=== PATIENT | female | born 1965 | race Caucasian/White ===

== ENCOUNTER 2016-09-13 03:50 | Inpatient (IN) | payer MEDICARE, MEDICAID ==
[~2016-09-13] VITALS: Ht 165.1 cm; Wt 46.3 kg
[2016-09-13] MEDS ORDERED: ACETAMINOPHEN 325 MG TABLET PO PRN (05:30)
[2016-09-13] MEDS ORDERED: MAGNESIUM HYDROXIDE 30 ML UDC PO PRN (05:30)
[2016-09-13 07:08] VITALS: BP 103/66
[2016-09-13 08:00] VITALS: BP 100/60
[2016-09-13] MEDS ORDERED: LORAZEPAM 0.5 MG TABLET PO PRN (11:00)
[2016-09-13] MEDS ORDERED: TEMAZEPAM 7.5 MG CAPSULE PO PRN (11:00)
[2016-09-13] MEDS: OLANZAPINE 5 MG/TAB.RAPDIS PO SCH ×2 (11:30→21:00)
[2016-09-13 16:00] VITALS: BP 122/69
[2016-09-14] MEDS: OLANZAPINE 5 MG/TAB.RAPDIS PO SCH ×2 (09:00→21:00)
[2016-09-14 16:10] VITALS: BP 100/58
[2016-09-14] MEDS ORDERED: OLANZAPINE 10 MG VIAL IM STA (17:50)
[2016-09-15] MEDS: OLANZAPINE 5 MG/TAB.RAPDIS PO SCH ×2 (09:00→20:43)
[2016-09-15] MEDS ORDERED: OLANZAPINE 10 MG VIAL IM STA (09:09)
[2016-09-15 20:00] VITALS: BP 112/72
[2016-09-16 08:00] VITALS: BP 118/72
[2016-09-16] MEDS: OLANZAPINE 5 MG/TAB.RAPDIS PO SCH ×2 (09:00→20:24)
[2016-09-16 20:00] VITALS: BP 127/79
[2016-09-17] MEDS: OLANZAPINE 5 MG/TAB.RAPDIS PO SCH ×2 (09:00→22:00)
[2016-09-17 20:00] VITALS: BP 137/66
[2016-09-17] MEDS: HALOPERIDOL 5 MG TABLET PO SCH (22:00)
[2016-09-18] MEDS: OLANZAPINE 5 MG/TAB.RAPDIS PO SCH ×2 (08:11→21:54)
[2016-09-18] MEDS: HALOPERIDOL 5 MG TABLET PO SCH (21:54)
[2016-09-18] MEDS ORDERED: LORAZEPAM INJ 2 MG/ML VIAL ONE (23:16)
[2016-09-18] MEDS ORDERED: BENZTROPINE MESYLATE (2MG/2ML) 2 MG/2 ML AMPUL ONE (23:17)
[2016-09-18] MEDS ORDERED: HALOPERIDOL LACTATE INJ 5 MG/ML VIAL ONE (23:17)
[2016-09-18] MEDS ORDERED: BENZTROPINE MESYLATE (2MG/2ML) 2 MG/2 ML AMPUL IM ONE (23:30)
[2016-09-18] MEDS ORDERED: HALOPERIDOL LACTATE INJ 5 MG/ML VIAL IM ONE (23:30)
[2016-09-18] MEDS ORDERED: LORAZEPAM INJ 2 MG/ML VIAL IM ONE (23:30)
[2016-09-19] MEDS: OLANZAPINE 5 MG/TAB.RAPDIS PO SCH (08:18)
[2016-09-19] MEDS ORDERED: HALOPERIDOL 5 MG TABLET PO SCH ×2 (10:30→17:00)
[2016-09-19] MEDS: BENZTROPINE MESYLATE (1 MG) 1 MG TABLET PO SCH ×2 (10:30→16:54)
[2016-09-19] MEDS: HALOPERIDOL 5 MG TABLET PO SCH ×2 (10:38→16:54)
[2016-09-19] MEDS: BENZTROPINE MESYLATE (2MG/2ML) 2 MG/2 ML AMPUL IM PRN ×2 (11:14→16:57)
[2016-09-19] MEDS: HALOPERIDOL LACTATE INJ 5 MG/ML VIAL IM PRN ×2 (11:14→16:57)
[2016-09-19 11:30] VITALS: BP 120/67
[2016-09-19 18:19] LABS: BASOPHILS % (AUTO) 0.5 % (0.0-2.0); EOSINOPHILS # (AUTO) 0.2 /CMM (0.0-0.7); EOSINOPHILS % (AUTO) 3.2 % (0.0-6.0); HEMATOCRIT 42 % (33-45); HEMOGLOBIN 14.2 g/dL (11.5-14.8); LYMPHOCYTES # (AUTO) 1.4 /CMM (0.8-4.8); LYMPHOCYTES % (AUTO) 25.1 % (20.0-44.0); MEAN CORPUSCULAR HEMOGLOBIN 31 PG (26.0-33.0); MEAN CORPUSCULAR HGB CONC 34 g/dl (31.0-36.0); MEAN CORPUSCULAR VOLUME 91 fL (82-100); MONOCYTES # (AUTO) 0.4 /CMM (0.1-1.30); MONOCYTES % (AUTO) 6.3 % (2.0-12.0); NEUTROPHILS # (AUTO) 3.7 /CMM (1.8-8.9); NEUTROPHILS % (AUTO) 64.9 % (43.0-81.0); PLATELET COUNT (AUTO) 191 /CMM (150-450); RDW COEFFICIENT OF VARIATION 12.9 (11.5-15.0); RED BLOOD CELL COUNT(AUTO) 4.65 MIL/uL (4.0-5.2); WHITE BLOOD COUNT (AUTO) 5.7 K/uL (4.3-11.0)
[2016-09-19 18:36] LABS: CALCIUM, SERUM 8.9 mg/dL (8.5-10.1); CREATININE 0.9 mg/dL (0.6-1.3); MAGNESIUM 1.9 mg/dL (1.8-2.4); PHOSPHORUS 4.2 mg/dL (2.5-4.9); POTASSIUM 4.6 mmol/L (3.5-5.1)
[2016-09-19 20:10] VITALS: BP 136/78
[2016-09-20] MEDS: HALOPERIDOL 5 MG TABLET PO SCH ×2 (09:00→17:00)
[2016-09-20] MEDS: BENZTROPINE MESYLATE (1 MG) 1 MG TABLET PO SCH ×2 (09:00→17:00)
[2016-09-20] MEDS: BENZTROPINE MESYLATE (2MG/2ML) 2 MG/2 ML AMPUL IM PRN ×2 (09:09→17:03)
[2016-09-20] MEDS: HALOPERIDOL LACTATE INJ 5 MG/ML VIAL IM PRN ×2 (09:09→17:02)
[2016-09-20 16:00] VITALS: BP 140/94
[2016-09-21] MEDS: HALOPERIDOL 5 MG TABLET PO SCH ×2 (08:09→15:44)
[2016-09-21] MEDS: BENZTROPINE MESYLATE (1 MG) 1 MG TABLET PO SCH ×2 (08:09→15:44)
[2016-09-22] MEDS: HALOPERIDOL 5 MG TABLET PO SCH ×2 (08:57→17:21)
[2016-09-22] MEDS: BENZTROPINE MESYLATE (1 MG) 1 MG TABLET PO SCH ×2 (08:57→17:21)
[2016-09-22] MEDS: DIVALPROEX SODIUM 125 MG CAP.SPRINK PO SCH ×2 (11:10→21:00)
[2016-09-22 15:37] VITALS: BP 128/84
[2016-09-22 20:00] VITALS: BP 117/67
[2016-09-23] MEDS: BENZTROPINE MESYLATE (1 MG) 1 MG TABLET PO SCH ×2 (09:08→16:30)
[2016-09-23] MEDS: HALOPERIDOL 5 MG TABLET PO SCH ×2 (09:09→16:30)
[2016-09-23] MEDS: DIVALPROEX SODIUM 125 MG CAP.SPRINK PO SCH ×2 (09:09→21:00)
[2016-09-23] MEDS ORDERED: BOOST PLUS FOOD-VANILLA 237 ML BOX PO SCH (17:00)
[2016-09-23 20:00] VITALS: BP 122/75
[2016-09-24] MEDS: DIVALPROEX SODIUM 125 MG CAP.SPRINK PO SCH ×2 (09:42→20:48)
[2016-09-24] MEDS: HALOPERIDOL 5 MG TABLET PO SCH ×2 (09:43→16:30)
[2016-09-24] MEDS: BENZTROPINE MESYLATE (1 MG) 1 MG TABLET PO SCH ×2 (09:43→16:30)
[2016-09-24] MEDS: BOOST PLUS FOOD-VANILLA 237 ML BOX PO SCH ×2 (09:43→16:53)
[2016-09-24 15:53] VITALS: BP 121/76
[2016-09-24 20:00] VITALS: BP 115/75
[2016-09-24 22:00] VITALS: BP 115/75
[2016-09-25] MEDS: MAG HYDROX/AL HYDROX/SIMETH 30 ML UDC PO PRN ×2 (05:13→19:12)
[2016-09-25 08:02] VITALS: BP 112/69
[2016-09-25] MEDS: DIVALPROEX SODIUM 125 MG CAP.SPRINK PO SCH ×3 (08:18→21:00)
[2016-09-25] MEDS: BENZTROPINE MESYLATE (1 MG) 1 MG TABLET PO SCH ×3 (08:18→17:06)
[2016-09-25] MEDS: BOOST PLUS FOOD-VANILLA 237 ML BOX PO SCH ×2 (08:18→17:04)
[2016-09-25] MEDS: HALOPERIDOL 5 MG TABLET PO SCH ×3 (08:19→17:06)
[2016-09-25] MEDS: HALOPERIDOL LACTATE INJ 5 MG/ML VIAL IM PRN (08:30)
[2016-09-25] MEDS: BENZTROPINE MESYLATE (2MG/2ML) 2 MG/2 ML AMPUL IM PRN (08:30)
[2016-09-26] MEDS: BOOST PLUS FOOD-VANILLA 237 ML BOX PO SCH ×2 (08:00→17:00)
[2016-09-26] MEDS: BENZTROPINE MESYLATE (1 MG) 1 MG TABLET PO SCH ×2 (08:31→17:49)
[2016-09-26] MEDS: HALOPERIDOL 5 MG TABLET PO SCH ×2 (08:31→17:49)
[2016-09-26] MEDS: DIVALPROEX SODIUM 125 MG CAP.SPRINK PO SCH ×2 (08:31→21:00)
[2016-09-26] MEDS ORDERED: OLANZAPINE 10 MG VIAL IM PRN (13:00)
[2016-09-26] MEDS: OLANZAPINE 5 MG/TAB.RAPDIS PO SCH ×2 (13:10→17:49)
[2016-09-26 20:00] VITALS: BP 107/43
[2016-09-27 08:00] VITALS: BP 100/61
[2016-09-27] MEDS: BOOST PLUS FOOD-VANILLA 237 ML BOX PO SCH ×2 (08:00→17:00)
[2016-09-27] MEDS: HALOPERIDOL 5 MG TABLET PO SCH ×2 (08:41→17:25)
[2016-09-27] MEDS: BENZTROPINE MESYLATE (1 MG) 1 MG TABLET PO SCH ×2 (08:42→17:25)
[2016-09-27] MEDS: DIVALPROEX SODIUM 125 MG CAP.SPRINK PO SCH ×3 (08:42→17:25)
[2016-09-27] MEDS: OLANZAPINE 5 MG/TAB.RAPDIS PO SCH ×3 (08:42→17:25)
[2016-09-27] MEDS ORDERED: BENZTROPINE MESYLATE (2MG/2ML) 2 MG/2 ML AMPUL IM STA (13:11)
[2016-09-27] MEDS ORDERED: LORAZEPAM INJ 2 MG/ML VIAL IM STA (13:11)
[2016-09-27] MEDS ORDERED: HALOPERIDOL LACTATE INJ 5 MG/ML VIAL IM STA (13:11)
[2016-09-27 16:00] VITALS: BP 100/61
[2016-09-27 20:48] VITALS: BP 93/55
[2016-09-28] MEDS: BOOST PLUS FOOD-VANILLA 237 ML BOX PO SCH ×3 (08:00→17:44)
[2016-09-28 08:23] VITALS: BP 117/90
[2016-09-28] MEDS: BENZTROPINE MESYLATE (1 MG) 1 MG TABLET PO SCH ×2 (08:48→15:59)
[2016-09-28] MEDS: OLANZAPINE 5 MG/TAB.RAPDIS PO SCH ×3 (08:48→15:59)
[2016-09-28] MEDS: DIVALPROEX SODIUM 125 MG CAP.SPRINK PO SCH ×3 (08:48→15:59)
[2016-09-28] MEDS: HALOPERIDOL 5 MG TABLET PO SCH ×2 (08:48→15:59)
[2016-09-28] MEDS: HALOPERIDOL LACTATE INJ 5 MG/ML VIAL IM PRN (08:51)
[2016-09-28] MEDS ORDERED: HALOPERIDOL DECANOATE IM 100 MG/ML AMPUL IM ONE (13:00)
[2016-09-28 15:28] VITALS: BP 100/59
[2016-09-28] MEDS ORDERED: HALOPERIDOL LACTATE 10 MG/5 ML UDC PO SCH (17:00)
[2016-09-28 19:49] VITALS: BP 104/50
[2016-09-29 08:00] VITALS: BP 150/76
[2016-09-29] MEDS: BOOST PLUS FOOD-VANILLA 237 ML BOX PO SCH ×2 (08:00→17:20)
[2016-09-29] MEDS ORDERED: HALOPERIDOL LACTATE INJ 5 MG/ML VIAL IM PRN (09:00)
[2016-09-29] MEDS ORDERED: OLANZAPINE 10 MG VIAL IM PRN (09:00)
[2016-09-29] MEDS: BENZTROPINE MESYLATE (1 MG) 1 MG TABLET PO SCH ×2 (09:20→17:20)
[2016-09-29] MEDS: OLANZAPINE 5 MG/TAB.RAPDIS PO SCH ×2 (09:20→17:20)
[2016-09-29] MEDS: HALOPERIDOL 5 MG TABLET PO SCH ×2 (09:20→20:45)
[2016-09-29] MEDS: DIVALPROEX SODIUM 125 MG CAP.SPRINK PO SCH ×3 (09:21→17:20)
[2016-09-29 20:00] VITALS: BP 100/57
[2016-09-29] MEDS ORDERED: HALOPERIDOL LACTATE INJ 5 MG/ML VIAL IM ONE (20:00)
[2016-09-29] MEDS ORDERED: BENZTROPINE MESYLATE (2MG/2ML) 2 MG/2 ML AMPUL IM SCH (20:00)
[2016-09-29] MEDS ORDERED: LORAZEPAM INJ 2 MG/ML VIAL IM/IV ONE (20:00)
[2016-09-29] MEDS ORDERED: BENZTROPINE MESYLATE (2MG/2ML) 2 MG/2 ML AMPUL IM ONE (20:30)
[2016-09-30] MEDS ORDERED: BENZTROPINE MESYLATE (2MG/2ML) 2 MG/2 ML AMPUL IM SCH (09:00)
[2016-09-30] MEDS: BOOST PLUS FOOD-VANILLA 237 ML BOX PO SCH ×2 (09:24→16:27)
[2016-09-30] MEDS: DIVALPROEX SODIUM 125 MG CAP.SPRINK PO SCH ×3 (09:25→16:27)
[2016-09-30] MEDS: OLANZAPINE 5 MG/TAB.RAPDIS PO SCH ×2 (09:25→16:27)
[2016-09-30] MEDS: HALOPERIDOL 5 MG TABLET PO SCH ×2 (09:25→20:24)
[2016-09-30] MEDS: BENZTROPINE MESYLATE (1 MG) 1 MG TABLET PO SCH ×2 (09:26→16:27)
[2016-09-30 20:00] VITALS: BP 103/66
[2016-10-01] MEDS: HALOPERIDOL 5 MG TABLET PO SCH ×2 (08:31→20:55)
[2016-10-01] MEDS: BENZTROPINE MESYLATE (1 MG) 1 MG TABLET PO SCH ×2 (08:31→17:16)
[2016-10-01] MEDS: OLANZAPINE 5 MG/TAB.RAPDIS PO SCH ×2 (08:31→17:16)
[2016-10-01] MEDS: DIVALPROEX SODIUM 125 MG CAP.SPRINK PO SCH ×3 (08:31→17:16)
[2016-10-01] MEDS: BOOST PLUS FOOD-VANILLA 237 ML BOX PO SCH ×2 (09:19→17:16)
[2016-10-01 20:00] VITALS: BP 133/50
[2016-10-02] MEDS: BOOST PLUS FOOD-VANILLA 237 ML BOX PO SCH ×2 (08:25→17:14)
[2016-10-02] MEDS: HALOPERIDOL 5 MG TABLET PO SCH ×2 (09:41→21:31)
[2016-10-02] MEDS: BENZTROPINE MESYLATE (1 MG) 1 MG TABLET PO SCH ×2 (09:41→17:15)
[2016-10-02] MEDS: DIVALPROEX SODIUM 125 MG CAP.SPRINK PO SCH ×3 (09:42→17:14)
[2016-10-02] MEDS: OLANZAPINE 5 MG/TAB.RAPDIS PO SCH ×2 (09:42→17:15)
[2016-10-02 10:35] VITALS: BP 110/60
[2016-10-02 10:41] VITALS: BP 110/60
[2016-10-02] MEDS ORDERED: diphenhydrAMINE HCL 50 MG/ML VIAL IV ONE (11:00)
[2016-10-02] MEDS ORDERED: LORAZEPAM INJ 2 MG/ML VIAL IV ONE (11:00)
[2016-10-02] MEDS ORDERED: HALOPERIDOL LACTATE INJ 5 MG/ML VIAL IM ONE (11:00)
[2016-10-02] MEDS ORDERED: HALOPERIDOL DECANOATE IM 100 MG/ML AMPUL IM ONE (14:10)
[2016-10-02 20:00] VITALS: BP 131/71
[2016-10-02 20:43] VITALS: BP 131/71
[2016-10-02 21:10] VITALS: BP 131/71
[2016-10-03] MEDS: HALOPERIDOL 5 MG TABLET PO SCH ×2 (08:50→20:58)
[2016-10-03] MEDS: DIVALPROEX SODIUM 125 MG CAP.SPRINK PO SCH ×3 (08:50→16:54)
[2016-10-03] MEDS: OLANZAPINE 5 MG/TAB.RAPDIS PO SCH ×2 (08:50→16:54)
[2016-10-03] MEDS: BENZTROPINE MESYLATE (1 MG) 1 MG TABLET PO SCH ×2 (08:51→16:54)
[2016-10-03] MEDS: BOOST PLUS FOOD-VANILLA 237 ML BOX PO SCH ×2 (09:58→16:56)
[2016-10-03 16:00] VITALS: BP 101/60
[2016-10-03 22:11] VITALS: BP 111/73
[2016-10-04] MEDS: DIVALPROEX SODIUM 125 MG CAP.SPRINK PO SCH ×3 (08:35→16:42)
[2016-10-04] MEDS: HALOPERIDOL 5 MG TABLET PO SCH ×2 (08:35→21:36)
[2016-10-04] MEDS: BENZTROPINE MESYLATE (1 MG) 1 MG TABLET PO SCH ×2 (08:35→16:41)
[2016-10-04] MEDS: BOOST PLUS FOOD-VANILLA 237 ML BOX PO SCH ×2 (08:39→16:44)
[2016-10-04] MEDS ORDERED: OLANZAPINE 5 MG/TAB.RAPDIS PO SCH (09:00)
[2016-10-04] MEDS ORDERED: OLANZAPINE 2.5 MG TABLET PO ONE (11:00)
[2016-10-04] MEDS: LORAZEPAM 0.5 MG TABLET PO SCH ×2 (11:31→16:42)
[2016-10-04 16:00] VITALS: BP 117/76
[2016-10-04] MEDS: OLANZAPINE 5 MG TABLET PO SCH (16:42)
[2016-10-04 21:03] VITALS: BP 103/74
[2016-10-05] MEDS: BENZTROPINE MESYLATE (1 MG) 1 MG TABLET PO SCH ×2 (08:18→16:38)
[2016-10-05] MEDS: LORAZEPAM 0.5 MG TABLET PO SCH ×2 (08:18→16:39)
[2016-10-05] MEDS: HALOPERIDOL 5 MG TABLET PO SCH ×2 (08:18→20:21)
[2016-10-05] MEDS: OLANZAPINE 5 MG TABLET PO SCH ×2 (08:18→16:39)
[2016-10-05] MEDS: DIVALPROEX SODIUM 125 MG CAP.SPRINK PO SCH ×3 (08:19→16:38)
[2016-10-05] MEDS: BOOST PLUS FOOD-VANILLA 237 ML BOX PO SCH ×2 (08:37→17:59)
[2016-10-05 16:07] VITALS: BP 106/58
[2016-10-05] MEDS: MAG HYDROX/AL HYDROX/SIMETH 30 ML UDC PO PRN (23:01)
[2016-10-06] MEDS: DIVALPROEX SODIUM 125 MG CAP.SPRINK PO SCH ×3 (08:29→16:39)
[2016-10-06] MEDS: BENZTROPINE MESYLATE (1 MG) 1 MG TABLET PO SCH ×2 (08:30→16:39)
[2016-10-06] MEDS: OLANZAPINE 5 MG TABLET PO SCH ×2 (08:30→16:39)
[2016-10-06] MEDS: HALOPERIDOL 5 MG TABLET PO SCH (08:30)
[2016-10-06] MEDS: LORAZEPAM 0.5 MG TABLET PO SCH ×3 (08:37→16:42)
[2016-10-06] MEDS: BOOST PLUS FOOD-VANILLA 237 ML BOX PO SCH ×2 (08:40→16:43)
[2016-10-06 16:00] VITALS: BP 105/69
== END 2016-10-06 17:45 | DRG 885 ==
LOC: GPS 05:16
PROVIDERS: ADMIT Psychiatry & Neurology Psychosomatic Medicine; ATTEND Nurse Practitioner Acute Care
DX: F31.9 Bipolar disorder, unspecified (principal); E44.0 Moderate protein-calorie malnutrition; Z68.1 Body mass index [BMI] 19.9 or less, adult; F41.9 Anxiety disorder, unspecified; F12.10 Cannabis abuse, uncomplicated; F15.10 Other stimulant abuse, uncomplicated; Z73.6 Limitation of activities due to disability; F29 Unspecified psychosis not due to a substance or known physiological condition; Z91.19 Patient's noncompliance with other medical treatment and regimen
CPT/HCPCS: 36415; 80048-TC; 83735-TC; 84100-TC; 85025-TC; J0515; J1200; J1630; J1631; J2060; J3490; Z7610